=== PATIENT | female | born 1970 | race Caucasian/White ===

== ENCOUNTER 2016-11-03 07:57 | Outpatient (CLI) | payer BC ==
[~2016-11-03] VITALS: Ht 175.3 cm; Wt 74.8 kg
[~2016-11-03 07:57] MED LIST: ACHD5005 PO; ACHYD1T PO; CRS350T; DCS100C PO; DIAZ5TAB3 PO; ESTR1TAB24 PO; FERR-57 PO; HYDR-34; HYDR1CAP2 PO; HYDR1TAB PO; IBP800T PO; NAPR-243 PO; NAPR220T76 PO; NITR-65 PO; ONDAN4ODT PO; OXYC-272 PO; PREN1TAB39 PO; PROM25SU10 PR
--- OUTSIDE RECORDS SUMMARY | 2016-11-03 08:00 | XMS REPORT | Continuity of Care Document ---
Author Author [facility] Organization [facility] Address Unknown Phone Unavailable Care Team Providers Care Barrel Marker Name Role Phone MORENITA COHN MD PCP Insurance Providers Payer Name Policy Number [id number] Self / Same As Patient Advance Directives Directive Response Recorded Date/Time Advance Directives No 01/29/15 8:08am Health Care Power of [employer] Bpm Consultant No 01/29/15 8:08am Organ Donor Yes 01/29/15 8:08am Resuscitation Status Full Code 01/29/15 8:08am Problems No known problems or medical conditions. Medications Medication Dose Route Sig Days/Qty Instructions Order Date Discontinued Date Status Carisoprodol 10/11/09 04/08/10 Discontinued Acetaminophen/Hydrocodone Bitart 10/11/09 04/08/10 Discontinued Acetaminophen/Hydrocodone Bitart (Lorcet-Hd) 2 Each PO Q6HR PRN 20 Qty 04/08/10 07/22/11 Discontinued Ibuprofen 800 Mg PO GIVE EVERY 8 HRS ON SCHEDULE PRN 30 Qty 04/08/10 07/22/11 Discontinued Naproxen Sodium 220 Mg PO NEEDED 07/10/10 06/17/13 Discontinued Acetaminophen/Hydrocodone Bitart (Lorcet-Hd) 1 - 2 Each PO Q6HR PRN 20 Qty 07/10/10 06/17/13 Discontinued Diazepam (Valium) 1 Each PO TWICE A DAY PRN 14 Qty 07/10/10 06/17/13 Discontinued Naproxen 1 Each PO TWICE A DAY PRN 20 Qty 07/10/10 06/17/13 Discontinued Acetaminophen/Hydrocodone Bitart 1 - 2 Tab PO q 3hr PRN 07/22/1106/21 Discontinued Ibuprofen 800 Mg PO EVERY 6 HOURS PRN 07/22/11 10/26/11 Discontinued Ferrous Sulfate 325 Mg PO DAILY 07/22/11 10/26/11 Discontinued Docusate Sodium 100 Mg PO TWICE A DAY 07/22/11 10/26/11 Discontinued Vits W-Ca,Fe,Fa(<1MG) 1 Each PO DAILY 07/22/11 10/26/11 Discontinued Ondansetron HCl 4 - 8 P PO EVERY 4HRS 10 Qty FOR NAUSEA AND VOMITING 31/0812/19/11 Discontinued Promethazine HCl 1 - 2 Supp [place] FOUR TIMES DAILY PRN 10 Qty 11/30/11 Discontinued Nitrofurantoin Macrocrystals 1 Each PO TWICE A DAY 20 Qty FOR INFECTION 11/30/11 12/19/11 Discontinued Acetaminophen/Hydrocodone Bitart 2 Each PO Q4HR PRN 12/22/11 Discontinued Oxycodone Hcl/Acetaminophen 1 Tab PO EVERY 4HRS PRN 12/23/11 Active Ibuprofen 800 Mg PO GIVE EVERY 6 HR ON SCHEDULE 30 Qty 12/23/11 Discontinued Docusate Sodium 100 Mg PO DAILY 60 Qty 12/23/11 06/17/13 Discontinued Estradiol 1 Mg PO DAILY 90 Qty 12/23/11 06/17/13 Discontinued Ibuprofen 800 Mg PO BEDTIME 06/17/13 Active Acetaminophen/Hydrocodone Bitart 1 Tab PO EVERY 6 HOURS PRN PRN PAIN Active Social History Social History Problem Response Recorded Date/Time Recent Foreign Travel No 01/29/2015 8:07am Hospital Discharge Instructions No hospital discharge instructions. Plan of Care No plan of care. Functional Status No functional status results. Allergies, Adverse Reactions, Alerts Allergen Type Severity Reaction Status Last Updated NKANo Known Allergies Allergy Unknown Active 10/02/06 Immunizations Name Given Type Date of Influenza Vaccine 07/10/11 Historical Vital Signs Acute Vital Signs Vital Response Date/Time Temperature (Fahrenheit) 96.4 degrees F (97.6 - 99.5) Temperature (Calculated Celsius) 35.45662 degrees C (36.4 - 37.5) Temperature Source Tympanic Pulse Rate (adult) 72 bpm (60 - 90) Respiratory Rate 14 bpm (12 - 24) O2 Sat by Pulse Oximetry 99 % (88 - 100) Blood Pressure 103/82 mm Hg Pain Pain Intensity 0 Height (Feet) 5 feet Height (Inches) 9.00 inches Height (Calculated Centimeters) 175.473882 cm Weight (Pounds) 145 pounds Weight (Calculated Grams) 90624.894 gm Weight (Calculated Kilograms) 65.803887 kilograms Calculated BMI 21.41 Results No known relevant diagnostic tests, laboratory data and/or discharge summary. Procedures No known history of procedures. Encounters Encounter Location Date/Time Registered Clinic [facility] 01/29/15 7:52am Registered Clinic [facility] 01/05/15 4:02pm
[2016-11-03 08:11] VITALS: BP 119/90
[2016-11-03] MEDS ORDERED: DEXAMETHASONE PF 10 MG/ML (DECADRON) VIAL ONE (08:21)
[2016-11-03 08:41] VITALS: BP 115/94
--- NOTE | 2016-11-03 11:23 | Pain Medicine-Procedure ---
Procedure Pre-Op/Post-Op Diagnosis Diagnosis: disc disorder with radiculopathy, cervical Indications for Operation neck pain Attending Surgeon Blake Procedure Date of Service: Nov 03, 2016 Procedure: Cervical Epidural Steroid Injection at the C7-T1 Level under Fluoroscopic Guidance Procedure: Pt was identified in the holding area. After risks, benefits, and alternatives were discussed with the patient, informed consent was obtained. An IV was placed by nursing staff prior to procedure. Patient was brought to the fluoroscopy suite and placed prone on the operating table. A time out was performed. Vital signs were monitored throughout the procedure. The patients neck was prepped and draped in the usual sterile fashion. The patients skin was anesthetized using 1% Lidocaine. A 18 gauge tuohy needle was inserted and advanced to the C7-T1 epidural space under fluoroscopic guidance using the loss of resistance technique. The needle position was confirmed in the AP and lateral view. After negative aspiration 2 ml of non-ionic contrast was injected under live fluoroscopy which showed good spread of the contrast in the epidural space at the appropriate level, there was no intravascular or subarachnoid spread. Again, after negative aspiration, 3 ml of preservative free normal saline and 10 mg of dexamethasone was injected. The needle was removed and the patient was transferred to the recovery area in stable condition. And after a brief period of observation was discharged to home in stable condition with no new neurologic deficits. Complications none MATHEUS GRECO MD Nov 03, 2016 11:22 am
== END 2016-11-03 08:43 | disposition home or self-care (01) ==
LOC: CARD 07:57
PROVIDERS: ATTEND Pain Medicine Pain Medicine
DX: M50.13 Cervical disc disorder with radiculopathy, cervicothoracic region (principal); M41.83 Other forms of scoliosis, cervicothoracic region; M51.14 Intervertebral disc disorders with radiculopathy, thoracic region; Z79.899 Other long term (current) drug therapy
CPT/HCPCS: 62321

== ENCOUNTER → 2017-02-27 | Outpatient (CLI) | payer BC ==
--- NOTE | 2017-02-27 19:23 | Diagnostic Imaging Report ---
INDICATION: Lower back pain radiating to the left hip COMPARISON STUDIES: None FINDINGS: Two views of the left hip demonstrate no fracture or dislocation. There is normal ossification. IMPRESSION: Negative left hip. Dictated by: Dictated on workstation # [id number]
--- NOTE | 2017-02-27 19:25 | Diagnostic Imaging Report ---
INDICATION: Lower back pain radiating to the left hip. FINDINGS: Frontal and lateral views of the lumbar spine demonstrate no fracture or subluxation. Mild left rotary scoliosis is present. Facet arthropathy is present at L5-S1, greater on the right than the left. IMPRESSION: 1. Rotary scoliosis is present. 2. Facet arthropathy is present at L5-S1. Dictated by: Dictated on workstation # [id number]
== END ==
LOC: RAD 17:44
DX: M41.26 Other idiopathic scoliosis, lumbar region (principal); M12.9 Arthropathy, unspecified; M25.552 Pain in left hip
CPT/HCPCS: 72100; 73502

== ENCOUNTER → 2017-07-06 | Outpatient (CLI) | payer BC ==
--- NOTE | 2017-07-10 14:01 | Diagnostic Imaging Report ---
EXAMINATION: Bilateral screening mammogram 2D views with tomosynthesis. The current study was also evaluated with a Computer Aided Detection (CAD) system. INDICATION: Screening. PERSONAL HISTORY: No current complaints stated on the questionnaire. COMPARISON: 02/23/2016. FINDINGS: The breasts are composed of heterogeneously dense parenchyma which may decrease mammographic sensitivity. There is no mass, architectural distortion, or suspicious cluster of calcifications. Allowing for technique and positional differences, no suspicious change is seen. IMPRESSION: Dense breasts with no definite change. ACR BI-RADS Category 2: Benign findings. Result letter will be mailed to the patient. Note: At least 10% of breast cancer is not imaged by mammography. Dictated by: Dictated on workstation # [id number]
== END ==
LOC: RAD 13:39
PROVIDERS: ATTEND Nurse Practitioner Family
DX: Z12.31 Encounter for screening mammogram for malignant neoplasm of breast (principal)
CPT/HCPCS: 77067

== ENCOUNTER 2017-09-24 08:53 | Emergency (ER) | payer OTHER, BC ==
[~2017-09-24] VITALS: Ht 175.3 cm; Wt 74.8 kg
--- OUTSIDE RECORDS SUMMARY | 2017-09-24 08:58 | XMS REPORT ---
Author Author MARCUS MATHEW [facility] Address [address] [place] [address] Care Team Providers Care Vaccine Specialist Name Role Phone MARCUS MATHEW Unavailable PROBLEMS Type Condition ICD9-CM Code [id number] Code Onset Dates Condition Status SNOMED Code Assessment Encounter for immunization Z23 15 Apr, 2016 Active [id number] ALLERGIES Unknown Allergies SOCIAL HISTORY No smoking Hx information available PLAN OF CARE VITAL SIGNS MEDICATIONS Unknown Medications RESULTS No Results PROCEDURES Procedure Date Ordered Related Diagnosis Body Site TDAP (BOOSTRIX) Apr 24, 2016 SINGLE IMMUNIZATION ADMIN Apr 24, 2016 IMMUNIZATIONS Vaccine Route Administration Date Status TDAP (BOOSTRIX) IM Intramuscular Apr 24, 2016 Administered
--- OUTSIDE RECORDS SUMMARY | 2017-09-24 08:59 | XMS REPORT | Continuity of Care Document ---
Author Author Via [facility] Organization [facility] Address Unknown Phone Unavailable Allergies Active Description Code Type Severity Reaction Onset Reported/Identified Relationship to Patient Clinical Status Yes NKANo Known Allergies NKA Miscellaneous Allergy Unknown N/A 10/02/2006 Medications There is no data. Problems Date Dx Coded Attending Type Code Diagnosis Diagnosed By 07/10/2010 Ot 723.4 07/10/2010 Ot 847.0 07/10/2010 Ot 959.09 07/10/2010 Ot E000.8 07/10/2010 Ot E849.0 07/10/2010 Ot E927.8 06/27/2011 Ot 644.03 THRT ARACELIS LABOR-ANTEPART 07/22/2011 Ot 644.21 EARLY ONSET DELIVERY-DEL 07/22/2011 Ot 654.21 PREV DELIVRY W/ OR W/O MENT ANT 07/22/2011 Ot 659.61 ELD MULTIGRAVIDA DEL W MENTION OF ANTEPA 07/22/2011 Ot V06.1 DIPHTHERIA- TETANUS-PERTUSSIS, COMBINED [ 07/22/2011 Ot V27.0 DELIVER- SINGLE LIVEBORN 10/27/2011 Ot 614.6 FEM PELVIC PERITON ADH-POST-OP/INF 10/27/2011 Ot 617.1 OVARIAN ENDOMETRIOSIS 10/27/2011 Ot 617.3 PELV PERIT ENDOMETRIOSIS 10/27/2011 Ot 626.8 MENSTRUAL DISORDER NEC 11/30/2011 Ot 558.9 NONINF GASTROENTERIT NEC 11/30/2011 Ot 599.0 URIN TRACT INFECTION NOS 11/30/2011 Ot 787.03 VOMITING ALONE 12/23/2011 Ot 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 12/23/2011 Ot 614.6 FEM PELVIC PERITON ADH-POST-OP/INF 12/23/2011 Ot 617.0 UTERINE ENDOMETRIOSIS 12/23/2011 Ot 617.3 PELV PERIT ENDOMETRIOSIS 12/23/2011 Ot 620.0 FOLLICULAR CYST OF OVARY 12/23/2011 Ot 626.8 MENSTRUAL DISORDER NEC 10/08/2014 MATHEUS GRECO MD Ot 723.1 10/08/2014 MATHEUS GRECO MD Ot 786.50 11/05/2014 MATHEUS GRECO MD Ot 723.1 11/05/2014 MATHEUS GRECO MD Ot 737.30 01/29/2015 MATHEUS GRECO MD Ot 722.4 CERVICAL DISC DEGEN 01/29/2015 MATHEUS GRECO MD Ot 729.1 MYALGIA AND MYOSITIS NOS 01/29/2015 MATHEUS GRECO MD Ot 737.30 IDIOPATHIC SCOLIOSIS 01/29/2015 MATHEUS GRECO MD Ot V58.69 OTH MED,LT,CURRENT USE 02/02/2015 Ot 723.1 02/02/2015 Ot 959.09 02/02/2015 Ot E000.8 02/02/2015 Ot E849.0 02/02/2015 Ot E928.9 02/02/2015 Ot 723.0 02/02/2015 Ot 959.09 02/02/2015 Ot E000.8 02/02/2015 Ot E849.0 02/02/2015 Ot E888.9 02/02/2015 Ot 785.1 02/02/2015 Ot 285.9 02/02/2015 Ot 625.8 02/02/2015 Ot 626.2 02/02/2015 Ot V72.63 02/02/2015 Ot V74.8 02/02/2015 Ot 285.9 02/02/2015 Ot 617.9 02/02/2015 Ot 625.9 02/02/2015 Ot 626.8 02/02/2015 Ot V72.63 02/02/2015 Ot V74.8 02/02/2015 Ot 241.0 02/02/2015 Ot 796.2 02/02/2015 Ot V72.62 02/02/2015 GUSTABO CASTELLANO MD Ot 789.04 02/02/2015 CAROLINE MARQUEZ, STEPHANIE Ot 553.21 02/02/2015 CAROLINE MARQUEZ, STEPHANIE Ot V72.63 02/02/2015 CAROLINE MARQUEZ, STEPHANIE Ot V74.8 02/02/2015 CAROLINE MARQUEZ, STEPHANIE Ot 553.21 02/02/2015 GUSTABO CASTELLANO MD Ot 611.71 02/02/2015 SILVERIOSOFIA RECRUITMENT AND OUTREACH ASSISTANT Ot 724.5 02/02/2015 NUSRATSOFIA RECRUITMENT AND OUTREACH ASSISTANT Ot 789.00 02/02/2015 NUSRATSOFIA RECRUITMENT AND OUTREACH ASSISTANT Ot 793.6 02/02/2015 NUSRATSOFIA RECRUITMENT AND OUTREACH ASSISTANT Ot V76.12 02/02/2015 MATHEUS GRECO MD Ot 723.1 02/02/2015 MATHEUS GRECO MD Ot 786.50 02/02/2015 MATHEUS GRECO MD Ot 723.1 02/02/2015 MATHEUS GRECO MD Ot 737.30 02/02/2015 MATHEUS GRECO MD Ot 724.02 02/02/2015 MATHEUS GRECO MD Ot 737.30 02/06/2015 MATHEUS GRECO MD Ot 724.02 02/06/2015 MATHEUS GRECO MD Ot 737.30 02/17/2015 Ot 723.1 02/17/2015 Ot 959.09 02/17/2015 Ot E000.8 02/17/2015 Ot E849.0 02/17/2015 Ot E928.9 02/17/2015 Ot 723.0 02/17/2015 Ot 959.09 02/17/2015 Ot E000.8 02/17/2015 Ot E849.0 02/17/2015 Ot E888.9 02/17/2015 Ot 785.1 02/17/2015 Ot 285.9 02/17/2015 Ot 625.8 02/17/2015 Ot 626.2 02/17/2015 Ot V72.63 02/17/2015 Ot V74.8 02/17/2015 Ot 285.9 02/17/2015 Ot 617.9 02/17/2015 Ot 625.9 02/17/2015 Ot 626.8 02/17/2015 Ot V72.63 02/17/2015 Ot V74.8 02/17/2015 Ot 241.0 02/17/2015 Ot 796.2 02/17/2015 Ot V72.62 02/17/2015 GUSTABO CASTELLANO MD Ot 789.04 02/17/2015 STEPHANIE VELAZQUEZ MD Ot 553.21 02/17/2015 STEPHANIE VELAZQUEZ MD Ot V72.63 02/17/2015 STEPHANIE VELAZQUEZ MD Ot V74.8 02/17/2015 CAROLINE MARQUEZ, STEPHANIE Ot 553.21 02/17/2015 GRAY MARQUEZ, GUSTABO Diaz Ot 611.71 02/17/2015 NUSRAT SOFIA M RECRUITMENT AND OUTREACH ASSISTANT Ot 724.5 02/17/2015 NUSRATSOFIA RECRUITMENT AND OUTREACH ASSISTANT Ot 789.00 02/17/2015 NUSRAT SOFIA M RECRUITMENT AND OUTREACH ASSISTANT Ot 793.6 02/17/2015 SOFIA SILVERIO RECRUITMENT AND OUTREACH ASSISTANT Ot V76.12 02/17/2015 MATHEUS GRECO MD Ot 723.1 02/17/2015 MATHEUS GRECO MD Ot 786.50 02/17/2015 MATHEUS GRECO MD Ot 723.1 02/17/2015 MATHEUS GRECO MD Ot 737.30 02/17/2015 MATHEUS GRECO MD Ot 724.02 02/17/2015 MATHEUS GRECO MD Ot 737.30 02/21/2015 Ot 723.1 02/21/2015 Ot 959.09 02/21/2015 Ot E000.8 02/21/2015 Ot E849.0 02/21/2015 Ot E928.9 02/21/2015 Ot 723.0 02/21/2015 Ot 959.09 02/21/2015 Ot E000.8 02/21/2015 Ot E849.0 02/21/2015 Ot E888.9 02/21/2015 Ot 785.1 02/21/2015 Ot 285.9 02/21/2015 Ot 625.8 02/21/2015 Ot 626.2 02/21/2015 Ot V72.63 02/21/2015 Ot V74.8 02/21/2015 Ot 285.9 02/21/2015 Ot 617.9 02/21/2015 Ot 625.9 02/21/2015 Ot 626.8 02/21/2015 Ot V72.63 02/21/2015 Ot V74.8 02/21/2015 Ot 241.0 02/21/2015 Ot 796.2 02/21/2015 Ot V72.62 02/21/2015 GRAY MARQUEZ, GUSTABO Diaz Ot 789.04 02/21/2015 CAROLINE MARQUEZ, STEPHANIE Ot 553.21 02/21/2015 STEPHANIE VELAZQUEZ MD Ot V72.63 02/21/2015 CAROLINE MARQUEZ, STEHPANIE Ot V74.8 02/21/2015 CAROLINE MARQUEZ, STEPHANIE Ot 553.21 02/21/2015 GRAY MARQUEZ, GUSTABO Diaz Ot 611.71 02/21/2015 NUSRAT SOFIA M RECRUITMENT AND OUTREACH ASSISTANT Ot 724.5 02/21/2015 ELANA SILVERIOHANCHIP Rivera RECRUITMENT AND OUTREACH ASSISTANT Ot 789.00 02/21/2015 SOFIA SILVERIO RECRUITMENT AND OUTREACH ASSISTANT Ot 793.6 02/21/2015 SOFIA SILVERIO RECRUITMENT AND OUTREACH ASSISTANT Ot V76.12 02/21/2015 MATHEUS GRECO MD Ot 723.1 02/21/2015 FANNIE MARQUEZ, MATHEUS Cho Ot 786.50 02/21/2015 MATHEUS GRECO MD Ot 723.1 02/21/2015 MATHEUS GRECO MD Ot 737.30 02/21/2015 MATHEUS GRECO MD Ot 724.02 02/21/2015 MATHEUS GRECO MD Ot 737.30 02/24/2015 Ot 723.1 02/24/2015 Ot 959.09 02/24/2015 Ot E000.8 02/24/2015 Ot E849.0 02/24/2015 Ot E928.9 02/24/2015 Ot 723.0 02/24/2015 Ot 959.09 02/24/2015 Ot E000.8 02/24/2015 Ot E849.0 02/24/2015 Ot E888.9 02/24/2015 Ot 785.1 02/24/2015 Ot 285.9 02/24/2015 Ot 625.8 02/24/2015 Ot 626.2 02/24/2015 Ot V72.63 02/24/2015 Ot V74.8 02/24/2015 Ot 285.9 02/24/2015 Ot 617.9 02/24/2015 Ot 625.9 02/24/2015 Ot 626.8 02/24/2015 Ot V72.63 02/24/2015 Ot V74.8 02/24/2015 Ot 241.0 02/24/2015 Ot 796.2 02/24/2015 Ot V72.62 02/24/2015 GUSTABO CASTELLANO MD Ot 789.04 02/24/2015 CAROLINE MARQUEZ, STEPHANIE Ot 553.21 02/24/2015 STEPHANIE VELAZQUEZ MD Ot V72.63 02/24/2015 CAROLINE MARQUEZ, STEPHANIE Ot V74.8 02/24/2015 STEPHANIE VELAZQUEZ MD Ot 553.21 02/24/2015 GRAY MARQUEZ, GUSTABO Diaz Ot 611.71 02/24/2015 SOFIA SILVERIO RECRUITMENT AND OUTREACH ASSISTANT Ot 724.5 02/24/2015 SOFIA SILVERIO RECRUITMENT AND OUTREACH ASSISTANT Ot 789.00 02/24/2015 SOFIA SILVERIO RECRUITMENT AND OUTREACH ASSISTANT Ot 793.6 02/24/2015 SOFIA SILVERIO RECRUITMENT AND OUTREACH ASSISTANT Ot V76.12 02/24/2015 MATHEUS GRECO MD Ot 723.1 02/24/2015 MATHEUS GRECO MD Ot 786.50 02/24/2015 MATHEUS GRECO MD Ot 723.1 02/24/2015 MATHEUS GRECO MD Ot 737.30 02/24/2015 MATHEUS GRECO MD Ot 724.02 02/24/2015 MATHEUS GRECO MD Ot 737.30 03/26/2015 MATHEUS GRECO MD Ot 722.4 CERVICAL DISC DEGEN 03/26/2015 MATHEUS GRECO MD Ot 729.1 MYALGIA AND MYOSITIS NOS 03/26/2015 MATHEUS GRECO MD Ot 737.30 IDIOPATHIC SCOLIOSIS 03/26/2015 MATHEUS GRECO MD Ot V58.69 OT MED,LT,CURRENT USE 07/23/2015 MATHEUS GRECO MD Ot M41.9 SCOLIOSIS, UNSPECIFIED 07/23/2015 MATHEUS GRECO MD Ot M50.13 CERVICAL DISC DISORDER W RADICULOPATHY, 07/23/2015 MATHEUS GRECO MD Ot M79.1 MYALGIA 07/23/2015 MATHEUS GRECO MD Ot Z79.899 OTHER SUPERVISOR [employer] (CURRENT) DRUG THERAPY 12/17/2015 Ot 723.1 12/17/2015 Ot 959.09 12/17/2015 Ot E000.8 12/17/2015 Ot E849.0 12/17/2015 Ot E928.9 12/17/2015 Ot 723.0 12/17/2015 Ot 959.09 12/17/2015 Ot E000.8 12/17/2015 Ot E849.0 12/17/2015 Ot E888.9 12/17/2015 Ot 785.1 12/17/2015 Ot 285.9 12/17/2015 Ot 625.8 12/17/2015 Ot 626.2 12/17/2015 Ot V72.63 12/17/2015 Ot V74.8 12/17/2015 Ot 285.9 12/17/2015 Ot 617.9 12/17/2015 Ot 625.9 12/17/2015 Ot 626.8 12/17/2015 Ot V72.63 12/17/2015 Ot V74.8 12/17/2015 Ot 241.0 12/17/2015 Ot 796.2 12/17/2015 Ot V72.62 12/17/2015 GRAY MARQUEZ, GUSTABO Diaz Ot 789.04 12/17/2015 CAROLINE MARQUEZ, STEPHANIE Ot 553.21 12/17/2015 CAROLINE MARQEUZ, STEPHANIE Ot V72.63 12/17/2015 CAROLINE MARQUEZ, STEPHANIE Ot V74.8 12/17/2015 CAROLINE MARQUEZ, STEPHANIE Ot 553.21 12/17/2015 GRAY MARQUEZ, GUSTABO Diaz Ot 611.71 12/17/2015 SOFIA SILVERIO RECRUITMENT AND OUTREACH ASSISTANT Ot 724.5 12/17/2015 SOFIA SILVERIO RECRUITMENT AND OUTREACH ASSISTANT Ot 789.00 12/17/2015 SOFIA SILVERIO RECRUITMENT AND OUTREACH ASSISTANT Ot 793.6 12/17/2015 SOFIA SILVERIO RECRUITMENT AND OUTREACH ASSISTANT Ot V76.12 12/17/2015 MATHEUS GRECO MD Ot 723.1 12/17/2015 MATHEUS GRECO MD Ot 786.50 12/17/2015 MATHEUS GRECO MD Ot 723.1 12/17/2015 MATHEUS GRECO MD Ot 737.30 12/17/2015 MATHEUS GRECO MD Ot 724.02 12/17/2015 MATHEUS GRECO MD Ot 737.30 12/17/2015 MATHEUS GRECO MD Ot M50.13 CERVICAL DISC DISORDER W RADICULOPATHY, 12/17/2015 MATHEUS GRECO MD, Ot 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, T 12/17/2015 MATHEUS GRECO MD Ot Z79.899 OTHER SUPERVISOR [employer] (CURRENT) DRUG THERAPY 12/24/2015 MATHEUS GRECO MD Ot M50.13 CERVICAL DISC DISORDER W RADICULOPATHY, 12/24/2015 MATHEUS GRECO MD Ot 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, T 12/24/2015 MATHEUS GRECO MD Ot Z79.899 OTHER ALF (CURRENT) DRUG THERAPY 12/24/2015 MATHEUS GRECO MD Ot M50.13 CERVICAL DISC DISORDER W RADICULOPATHY, 12/24/2015 MATHEUS GRECO MD Ot 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, T 12/24/2015 MATHEUS GRECO MD Ot Z79.899 OTHER SUPERVISOR [employer] (CURRENT) DRUG THERAPY 03/16/2016 SUKI MARQUEZ, MORENITA Roach Ot R22.32 LOCALIZED SWELLING, MASS AND LUMP, LEFT 05/05/2016 Ot 785.1 PALPITATIONS 05/05/2016 Ot 285.9 ANEMIA NOS 05/05/2016 Ot 625.8 FEM GENITAL SYMPTOMS NEC 05/05/2016 Ot 626.2 EXCESSIVE MENSTRUATION 05/05/2016 Ot V72.63 PRE- PROCEDURAL LABORATORY EXAMINATION 05/05/2016 Ot V74.8 SCREEN- BACTERIAL DIS NEC 05/05/2016 Ot 285.9 ANEMIA NOS 05/05/2016 Ot 617.9 ENDOMETRIOSIS NOS 05/05/2016 Ot 625.9 FEM GENITAL SYMPTOMS NOS 05/05/2016 Ot 626.8 MENSTRUAL DISORDER NEC 05/05/2016 Ot V72.63 PRE- PROCEDURAL LABORATORY EXAMINATION 05/05/2016 Ot V74.8 SCREEN- BACTERIAL DIS NEC 05/05/2016 Ot 241.0 NONTOX UNINODULAR GOITER 05/05/2016 Ot 796.2 ELEV BL PRES W/O HYPERTN 05/05/2016 Ot V72.62 LAB EXAM ORDERED PART OF A ROUTINE GE 05/05/2016 GRAY MARQUEZ, GUSTABO Diaz Ot 789.04 ABDOMINAL PAIN, LEFT LOWER QUADRANT 05/05/2016 CAROLINE MARQUEZ, STEPHANIE Ot 553.21 INCISIONAL HERNIA 05/05/2016 CAROLINE MARQUEZ, STEPHANIE Ot V72.63 PRE-PROCEDURAL LABORATORY EXAMINATION 05/05/2016 CAROLINE MARQUEZ, STEPHANIE Ot V74.8 SCREEN-BACTERIAL DIS NEC 05/05/2016 CAROLINE MARQUEZ, STEPHANIE Ot 553.21 INCISIONAL HERNIA 05/05/2016 GRAY MARQUEZ, GUSTABO Diaz Ot 611.71 MASTODYNIA 05/05/2016 SOFIA SILVERIO RECRUITMENT AND OUTREACH ASSISTANT Ot 724.5 BACKACHE NOS 05/05/2016 SOFIA SILVERIO RECRUITMENT AND OUTREACH ASSISTANT Ot 789.00 ABDOMINAL PAIN, UNSPECIFIED SITE 05/05/2016 SOFIA SILVERIO RECRUITMENT AND OUTREACH ASSISTANT Ot 793.6 NOSP (ABN) FINDINGS ON RADIOLOGICAL OT 05/05/2016 SOFIA SILVERIO RECRUITMENT AND OUTREACH ASSISTANT Ot V76.12 OTH SCREEN MAMMO-MALIGN NEOPLASM OF ARGENIS 05/05/2016 MATHEUS GRECO MD Ot 723.1 CERVICALGIA 05/05/2016 MATHEUS GRECO MD Ot 786.50 CHEST PAIN NOS 05/05/2016 MATHEUS GRECO MD Ot 723.1 CERVICALGIA 05/05/2016 MATHEUS GRECO MD Ot 737.30 IDIOPATHIC SCOLIOSIS 05/05/2016 MATHEUS GRECO MD Ot 724.02 SPINAL STENOSIS, LUMBAR REG, W/OUT NEURO 05/05/2016 MATHEUS GRECO MD Ot 737.30 IDIOPATHIC SCOLIOSIS 05/05/2016 SUKI MARQUEZ, MORENITA Roach Ot R22.32 LOCALIZED SWELLING, MASS AND LUMP, LEFT 05/05/2016 MATHEUS GRECO MD Ot M41.83 OTHER FORMS OF SCOLIOSIS, CERVICOTHORACI 05/05/2016 MATHEUS GRECO MD Ot M50.13 CERVICAL DISC DISORDER W RADICULOPATHY, 05/05/2016 MATHEUS GRECO MD Ot 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, T 05/05/2016 MATHEUS GRECO MD Ot Z79.899 OTHER ALF (CURRENT) DRUG THERAPY 05/19/2016 MATHEUS GRECO MD Ot M41.83 OTHER FORMS OF SCOLIOSIS, CERVICOTHORACI 05/19/2016 MATHEUS GRECO MD Ot M50.13 CERVICAL DISC DISORDER W RADICULOPATHY, 05/19/2016 MATHEUS GRECO MD, Ot 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, T 05/19/2016 MATHEUS GRECO MD Ot Z79.899 OTHER ALF (CURRENT) DRUG THERAPY 10/01/2016 Ot 785.1 PALPITATIONS 10/01/2016 Ot 285.9 ANEMIA NOS 10/01/2016 Ot 625.8 FEM GENITAL SYMPTOMS NEC 10/01/2016 Ot 626.2 EXCESSIVE MENSTRUATION 10/01/2016 Ot V72.63 PRE- PROCEDURAL LABORATORY EXAMINATION 10/01/2016 Ot V74.8 SCREEN- BACTERIAL DIS NEC 10/01/2016 Ot 285.9 ANEMIA NOS 10/01/2016 Ot 617.9 ENDOMETRIOSIS NOS 10/01/2016 Ot 625.9 FEM GENITAL SYMPTOMS NOS 10/01/2016 Ot 626.8 MENSTRUAL DISORDER NEC 10/01/2016 Ot V72.63 PRE- PROCEDURAL LABORATORY EXAMINATION 10/01/2016 Ot V74.8 SCREEN- BACTERIAL DIS NEC 10/01/2016 Ot 241.0 NONTOX UNINODULAR GOITER 10/01/2016 Ot 796.2 ELEV BL PRES W/O HYPERTN 10/01/2016 Ot V72.62 LAB EXAM ORDERED PART OF A ROUTINE GE 10/01/2016 GRAY MARQUEZ, GUSTABO Diaz Ot 789.04 ABDOMINAL PAIN, LEFT LOWER QUADRANT 10/01/2016 CAROLINE MARQUEZ, STEPHANIE Ot 553.21 INCISIONAL HERNIA 10/01/2016 STEPHANIE VELAZQUEZ MD Ot V72.63 PRE-PROCEDURAL LABORATORY EXAMINATION 10/01/2016 STEPHANIE VELAZQUEZ MD Ot V74.8 SCREEN-BACTERIAL DIS NEC 10/01/2016 CAROLINE MARQUEZ, STEPHANIE Ot 553.21 INCISIONAL HERNIA 10/01/2016 GRAY MARQUEZ, GUSTABO Diaz Ot 611.71 MASTODYNIA 10/01/2016 SOFIA SILVERIO RECRUITMENT AND OUTREACH ASSISTANT Ot 724.5 BACKACHE NOS 10/01/2016 SOFIA SILVERIO RECRUITMENT AND OUTREACH ASSISTANT Ot 789.00 ABDOMINAL PAIN, UNSPECIFIED SITE 10/01/2016 SOFIA SILVERIO RECRUITMENT AND OUTREACH ASSISTANT Ot 793.6 NOSP (ABN) FINDINGS ON RADIOLOGICAL OT 10/01/2016 SOFIA SILVERIOP Ot V76.12 OT SCREEN MAMMO-MALIGN NEOPLASM OF ARGENIS 10/01/2016 MATHEUS GRECO MD Ot 723.1 CERVICALGIA 10/01/2016 MATHEUS GRECO MD Ot 786.50 CHEST PAIN NOS 10/01/2016 MATHEUS GRECO MD Ot 723.1 CERVICALGIA 10/01/2016 MATHEUS GRECO MD Ot 737.30 IDIOPATHIC SCOLIOSIS 10/01/2016 MATHEUS GRECO MD Ot 724.02 SPINAL STENOSIS, LUMBAR REG, W/OUT NEURO 10/01/2016 MATHEUS GRECO MD Ot 737.30 IDIOPATHIC SCOLIOSIS 10/01/2016 SUKI MARQUEZ, MORENITA Roach Ot R22.32 LOCALIZED SWELLING, MASS AND LUMP, LEFT 10/27/2016 Ot 785.1 PALPITATIONS 10/27/2016 Ot 285.9 ANEMIA NOS 10/27/2016 Ot 625.8 FEM GENITAL SYMPTOMS NEC 10/27/2016 Ot 626.2 EXCESSIVE MENSTRUATION 10/27/2016 Ot V72.63 PRE- PROCEDURAL LABORATORY EXAMINATION 10/27/2016 Ot V74.8 SCREEN- BACTERIAL DIS NEC 10/27/2016 Ot 285.9 ANEMIA NOS 10/27/2016 Ot 617.9 ENDOMETRIOSIS NOS 10/27/2016 Ot 625.9 FEM GENITAL SYMPTOMS NOS 10/27/2016 Ot 626.8 MENSTRUAL DISORDER NEC 10/27/2016 Ot V72.63 PRE- PROCEDURAL LABORATORY EXAMINATION 10/27/2016 Ot V74.8 SCREEN- BACTERIAL DIS NEC 10/27/2016 Ot 241.0 NONTOX UNINODULAR GOITER 10/27/2016 Ot 796.2 ELEV BL PRES W/O HYPERTN 10/27/2016 Ot V72.62 LAB EXAM ORDERED PART OF A ROUTINE GE 10/27/2016 GRAY MARQUEZ, GUSTABO Diaz Ot 789.04 ABDOMINAL PAIN, LEFT LOWER QUADRANT 10/27/2016 CAROLINE MARQUEZ, STEPHANIE Ot 553.21 INCISIONAL HERNIA 10/27/2016 CAROLINE MARQUEZ, STEPHANIE Ot V72.63 PRE-PROCEDURAL LABORATORY EXAMINATION 10/27/2016 CAROLINE MARQUEZ, STEPHANIE Ot V74.8 SCREEN-BACTERIAL DIS NEC 10/27/2016 CAROLINE MARQUEZ, STEPHANIE Ot 553.21 INCISIONAL HERNIA 10/27/2016 GRAY MARQUEZ, GUSTABO Diaz Ot 611.71 MASTODYNIA 10/27/2016 SOFIA SILVERIO RECRUITMENT AND OUTREACH ASSISTANT Ot 724.5 BACKACHE NOS 10/27/2016 SOFIA SILVERIO RECRUITMENT AND OUTREACH ASSISTANT Ot 789.00 ABDOMINAL PAIN, UNSPECIFIED SITE 10/27/2016 SOFIA SILVERIO RECRUITMENT AND OUTREACH ASSISTANT Ot 793.6 NOSP (ABN) FINDINGS ON RADIOLOGICAL OT 10/27/2016 SOFIA SILVERIO Ot V76.12 OTH SCREEN MAMMO-MALIGN NEOPLASM OF ARGENIS 10/27/2016 MATHEUS GRECO MD Ot 723.1 CERVICALGIA 10/27/2016 MATHEUS GRECO MD Ot 786.50 CHEST PAIN NOS 10/27/2016 MATHEUS GRECO MD Ot 723.1 CERVICALGIA 10/27/2016 MATHEUS GRECO MD Ot 737.30 IDIOPATHIC SCOLIOSIS 10/27/2016 MATHEUS GRECO MD Ot 724.02 SPINAL STENOSIS, LUMBAR REG, W/OUT NEURO 10/27/2016 MATHEUS GRECO MD Ot 737.30 IDIOPATHIC SCOLIOSIS 10/27/2016 MORENITA COHN MD Ot R22.32 LOCALIZED SWELLING, MASS AND LUMP, LEFT 11/03/2016 MATHEUS GRECO MD, Ot M41.83 OTHER FORMS OF SCOLIOSIS, CERVICOTHORACI 11/03/2016 MATHEUS GRECO MD, Ot M50.13 CERVICAL DISC DISORDER W RADICULOPATHY, 11/03/2016 MATHEUS GRECO MD, Ot 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, T 11/03/2016 MATHEUS GRECO MD Ot Z79.899 OTHER ALF (CURRENT) DRUG THERAPY 11/21/2016 MATHEUS GRECO MD, Ot M41.83 OTHER FORMS OF SCOLIOSIS, CERVICOTHORACI 11/21/2016 MATHEUS GRECO MD, Ot M50.13 CERVICAL DISC DISORDER W RADICULOPATHY, 11/21/2016 MATHEUS GRECO MD, Ot 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 Encounters ACCT No. Visit Date/Time Discharge Status Pt. Type Provider Facility Loc./Unit Complaint [id number] 07/06/2017 13:39:00 07/06/2017 23:59:59 CLS Outpatient VIRY CAMP APRN Via [facility] RAD SCREENING [id number] 02/27/2017 17:44:00 02/27/2017 23:59:59 CLS Outpatient NASIR VELASQUEZ MD [facility] RAD LOW BACK PAIN/LT HIP PAIN [id number] 11/03/2016 07:57:00 11/03/2016 08:43:00 DIS Outpatient MATHEUS GRECO MD Via [facility] CARD DISC DISORDER [id number] 05/05/2016 10:36:00 05/05/2016 11:42:00 DIS Outpatient MATHEUS GRECO MD Via [facility] [address] CERVICAL DISC DISORDER [id number] 02/23/2016 14:12:00 02/23/2016 23:59:59 CLS Outpatient MORENITA COHN MD Via [facility] RAD SWELLING OF LEFT AXILLA [id number] 12/17/2015 07:21:00 12/17/2015 08:30:00 DIS Outpatient MATHEUS GRECO MD Via [facility] CARD DISC DISORDER W/ RADICULOPATHY [id number] 07/23/2015 09:27:00 07/23/2015 11:20:00 DIS Outpatient MATHEUS GRECO MD Via [facility] CARD DDJD [id number] 03/26/2015 07:28:00 03/26/2015 08:49:00 DIS Outpatient MATHEUS GRECO MD Via [facility] CARD DDD [id number] 01/29/2015 07:52:00 01/29/2015 09:16:00 DIS Outpatient MATHEUS GRECO MD [facility] [address] DEGENERATIVE DISC DISEASE CERVICAL [id number] 01/05/2015 16:02:00 01/05/2015 23:59:59 CLS Outpatient MATHEUS GRECO MD Via [facility] RAD LUMBAGO [id number] 10/21/2014 14:57:00 10/21/2014 23:59:59 CLS Outpatient MATHEUS GRECO MD Via [facility] RAD CERVICAL PAIN, SCHOLIOSIS [id number] 09/17/2014 16:54:00 09/17/2014 23:59:59 CLS Outpatient FANNIE MARQUEZ, MATHEUS Cho [facility] RAD CERVICAL SPINE NECK PAIN, THORACALGIA, [id number] 06/25/2014 07:22:00 06/25/2014 23:59:59 CLS Outpatient SOFIA SILVERIO Via [facility] RAD SCREENING [id number] 01/01/2014 14:11:00 01/01/2014 23:59:59 CLS Outpatient SOFIA SILVERIO [facility] RAD LT FLANK PAIN [id number] 09/25/2013 14:01:00 09/25/2013 23:59:59 CLS Outpatient GUSTABO CASTELLANO MD [facility] RAD BREAST PAIN [id number] 06/19/2013 07:30:00 06/19/2013 23:59:59 CLS Outpatient STEPHANIE VELAZQUEZ MD [facility] SDC INCISIONAL LOWER LEFT ABDOMINAL WALL HERNIA [id number] 06/17/2013 07:56:00 06/17/2013 23:59:59 CLS Outpatient STEPHANIE VELAZQUEZ MD [facility] PREOP INCISIONAL LOWER LEFT ABDOMINAL WALL HERNIA [id number] 06/03/2013 07:42:00 06/03/2013 23:59:59 CLS Outpatient GUSTABO CASTELLANO MD [facility] RAD LLQ HERNIA [id number] 03/21/2013 09:31:00 03/21/2013 23:59:59 CLS Outpatient [id number] 03/07/2013 16:14:00 03/07/2013 23:59:59 CLS Outpatient [id number] 02/02/2015 12:10:00 Document Registration [id number] 02/20/2012 07:36:00 Document Registration [id number] 12/22/2011 05:37:00 Document Registration [id number] 12/19/2011 12:00:00 Document Registration [id number] 11/30/2011 15:36:00 Document Registration [id number] 10/27/2011 05:34:00 Document Registration [id number] 10/26/2011 12:07:00 Document Registration [id number] 07/20/2011 17:57:00 Document Registration [id number] 06/27/2011 09:25:00 Document Registration [id number] 06/09/2011 13:22:00 Document Registration [id number] 08/08/2010 12:22:00 Document Registration [id number] 07/20/2010 15:42:00 Document Registration [id number] 07/10/2010 10:17:00 Document Registration
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
[2017-09-24] MEDS ORDERED: KETOROLAC 30 MG/ML VIAL IVP ONE (09:15)
[2017-09-24 09:44] LABS: BASOPHILS % (AUTO) 1 % (0-10); EOSINOPHILS % (AUTO) 1 % (0-10); HEMATOCRIT 38 % (35-52); HEMOGLOBIN 12.8 G/DL (11.5-16.0); LYMPHOCYTES # (AUTO) 1.6 X 10^3 (1.0-4.0); LYMPHOCYTES % (AUTO) 35 % (12-44); MEAN CORPUSCULAR HEMOGLOBIN 33 PG (25-34); MEAN CORPUSCULAR HGB CONC 34 G/DL (32-36); MEAN CORPUSCULAR VOLUME 98 FL (80-99); MEAN PLATELET VOLUME 9.3 FL (7.4-10.4); MONOCYTES # (AUTO) 0.3 X 10^3 (0.0-1.0); MONOCYTES % (AUTO) 7 % (0-12); NEUTROPHILS # (AUTO) 2.5 X 10^3 (1.8-7.8); NEUTROPHILS % (AUTO) 57 % (42-75); PLATELET COUNT 318 10^3/uL (130-400); RED BLOOD COUNT 3.84 10^6/uL (4.35-5.85); RED CELL DISTRIBUTION WIDTH 11.8 % (10.0-14.5); WHITE BLOOD COUNT 4.5 10^3/uL (4.3-11.0)
[2017-09-24 10:07] LABS: ALANINE AMINOTRANSFERASE 22 U/L (0-55); ALBUMIN 4.4 GM/DL (3.2-4.5); ALKALINE PHOSPHATASE 53 U/L (40-136); BILIRUBIN,TOTAL 0.3 MG/DL (0.1-1.0); BUN/CREATININE RATIO 14; CALCIUM 9.4 MG/DL (8.5-10.1); CARBON DIOXIDE 24 MMOL/L (21-32); CHLORIDE 104 MMOL/L (98-107); CREATININE SERUM 0.71 MG/DL (0.60-1.30); GFR ESTIMATED > 60; GLUCOSE 85 MG/DL (70-105); POTASSIUM 3.8 MMOL/L (3.6-5.0); SODIUM 141 MMOL/L (135-145); TOTAL PROTEIN 7.3 GM/DL (6.4-8.2)
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
[2017-09-24] MEDS ORDERED: CYCL10TA9 PO (10:38)
[2017-09-24] MEDS ORDERED: ORPHENADRINE 60 MG/2 ML (NORFLEX) AMP IV ONE (10:45)
[2017-09-24] MEDS ORDERED: fentaNYL INJECTION 100 MCG/2 ML AMP IVP ONE (10:45)
[2017-09-24 11:11] VITALS: BP 132/78
== END 2017-09-24 11:11 | disposition home or self-care (01) ==
LOC: EDUNIT# 08:53 → ER 08:54
DX: S13.4XXA Sprain of ligaments of cervical spine, initial encounter (principal); Z87.39 Personal history of other diseases of the musculoskeletal system and connective tissue; V44.5XXA Car driver injured in collision with heavy transport vehicle or bus in traffic accident, initial encounter
CPT/HCPCS: 36415; 70450; 72125; 80053; 80320; 85025; 96374; 96375; 99283

== ENCOUNTER → 2017-10-26 | Outpatient (CLI) | payer BC, OTHER ==
[~2017-10-26] MED LIST changes: +CYCL10TA9 PO
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
== END ==
LOC: RAD 13:47
DX: M48.02 Spinal stenosis, cervical region (principal); M47.22 Other spondylosis with radiculopathy, cervical region; V89.2XXA Person injured in unspecified motor-vehicle accident, traffic, initial encounter
CPT/HCPCS: 72141

== ENCOUNTER → 2017-12-22 | Outpatient (CLI) | payer BC ==
--- NOTE | 2017-12-22 13:46 | Diagnostic Imaging Report ---
EXAMINATION: Left knee, 3 views. COMPARISON: None. HISTORY: A 47-year-old female, left knee pain and swelling. No known trauma. FINDINGS: There is moderate to severe joint space loss of the patellofemoral compartment. There is no identified large knee joint effusion. There is mild degenerative type enthesopathy at the insertion of the distal quadriceps tendon. There is a focal area of high attenuation projecting in the medial aspect of the joint space, potentially could relate to meniscal ossicle. There is no identified acute-appearing fracture. There is no cortical or aggressive bone destruction. IMPRESSION: 1. Moderate to severe patellofemoral compartment arthritis. 2. No identified knee joint effusion. 3. No identified acute bony abnormality. Dictated by: Dictated on workstation # [id number]
== END ==
LOC: RAD 12:41
PROVIDERS: ATTEND Nurse Practitioner Family
DX: M17.12 Unilateral primary osteoarthritis, left knee (principal)
CPT/HCPCS: 73562

== ENCOUNTER → 2019-05-23 | Outpatient (CLI) | payer BC ==
--- NOTE | 2019-05-26 08:16 | Diagnostic Imaging Report ---
Indication: Routine screening. Comparison is made with prior mammogram 07/06/2017 and 02/23/2016. 2-D and 3-D bilateral screening mammography was performed with CAD. Scattered fibroglandular densities are identified bilaterally. The parenchymal pattern is stable. No mass or malignant appearing microcalcifications are seen. The axillae are unremarkable. Impression: BI-RADS category one No mammographic features suspicious for malignancy are identified. ACR BI-RADS Category 1: Negative. Result letter will be mailed to the patient. Note: At least 10% of breast cancer is not imaged by mammography. Dictated by: Dictated on workstation # [id number]
== END ==
LOC: RAD 14:32
DX: Z12.31 Encounter for screening mammogram for malignant neoplasm of breast (principal)
CPT/HCPCS: 77067

== ENCOUNTER 2019-08-25 05:38 | Outpatient (CLI) | payer BC ==
[~2019-08-25] VITALS: Ht 172.7 cm; Wt 74.1 kg
[2019-08-25] MEDS ORDERED: NABU500T PO (14:28)
[2019-08-25] MEDS ORDERED: HYDR-3820 PO (14:28)
[2019-08-25] MEDS ORDERED: FENT1PAT10 TD (14:28)
[2019-08-25] MEDS ORDERED: AMIT150T PO (14:28)
== END 2019-08-25 14:30 ==
LOC: PREOP 05:38
PROVIDERS: ATTEND Internal Medicine
DX: Z01.818 Encounter for other preprocedural examination (principal)

== ENCOUNTER 2019-08-29 06:51 | Day surgery (SDC) | payer BC ==
--- NOTE | 2019-08-18 12:36 | HISTORY AND PHYSICAL ---
DATE OF SERVICE: COLONOSCOPY HISTORY AND PHYSICAL HISTORY OF PRESENT ILLNESS: The patient is a 48-year-old white female referred by Dr. Coreas for screening colonoscopy. She is higher than average risk as her mother was diagnosed with colon cancer in her early 60s. Father also of pancreatic cancer in his 70s. She denies bowel habit change or constipation issues, on chronic narcotic therapy for back pain. She has noted no blood in her stool. Denies melena. CURRENT MEDICATIONS: Nabumetone 500 mg b.i.d., amitriptyline 150 mg daily, fentanyl 75 mcg patch daily and hydrocodone 10/325 one to two q.6 p.r.n. PAST MEDICAL HISTORY: Significant for chronic low back pain and scoliosis. PAST SURGICAL HISTORY: Significant for an abdominal hysterectomy in 2011 for which ovaries were left. She has had several arthroscopic surgeries of her right knee and section x3. REVIEW OF SYSTEMS: CONSTITUTIONAL: She denies night sweats, chills, fever or change in weight. GASTROINTESTINAL: As noted in the HPI. CARDIOVASCULAR: She denies chest pain, orthopnea, PND, pedal edema or dyspnea on exertion. PULMONARY: She denies problems with cough, wheezing or shortness of breath. PHYSICAL EXAMINATION: GENERAL: Reveals a normal weight white female in no acute distress. VITAL SIGNS: Blood pressure 138/90, heart rate 70 and regular. HEENT: Unremarkable. CHEST: Clear. CARDIOVASCULAR: Reveals a regular rate and rhythm without murmur, S3 or S4. ABDOMEN: Soft, supple without mass, organomegaly or tenderness. EXTREMITIES: Reveal no cyanosis, clubbing or edema. ASSESSMENT AND PLAN: The patient is set up for screening colonoscopy, deemed to be of higher than average risk due to first degree relative, her mother diagnosed with colon cancer in her early 60s. No previous history of colonoscopy. Prep instructions were given and questions were answered. I thank you for the referral of this pleasant lady. Job ID: [id number] DocumentID: [id number] Dictated Date: 08/11/2019 17:39:43 Emd Special Education Teacher Date: 08/11/2019 18:12:50 Dictated By: JOVI DONOVAN MD
[~2019-08-29] VITALS: Ht 172.7 cm; Wt 74.1 kg
[~2019-08-29 06:51] MED LIST changes: +AMIT150T PO; +FENT1PAT10 TD; +HYDR-3820 PO; +NABU500T PO
[2019-08-29] MEDS ORDERED: LACTATED RINGERS 1,000 ML IV ONE (07:02)
[2019-08-29] MEDS ORDERED: PROPOFOL INJECTION 50 ML IV ONE (07:30)
[2019-08-29] MEDS ORDERED: MIDAZOLAM 2 MG/2 ML (VERSED) VIAL ONE (07:31)
[2019-08-29] MEDS ORDERED: LIDOCAINE JELLY 2% 6 ML SYRINGE ONE (07:32)
--- NOTE | 2019-08-29 07:34 | Pre-Op Note & Conscious Sedat ---
Pre-Operative Progress Note H&P Reviewed The H&P was reviewed, patient examined and no changes noted. Date H&P Reviewed: Aug 29, 2019 Time H&P Reviewed: 07:25 Conscious Sedation Pre-Proced ASA Score 2 For ASA 3 and 4: Consider anesthesia and medical clearance. Also, for patients with a history of failed moderate sedation consider anesthesia. Airway Lungs Heart ASA score ASA 1: a normal healthy patient ASA 2: a patient with a mild systemic disease (mid diabetes, controlled hypertension, obesity ASA 3: a patient with a severe systemic disease that limits activity (angina, COPD, prior Myocardial infarction) ASA 4: a patient with an incapacitating disease that is a constant threat to life (CHF, renal failure) ASA 5: a moribund patient not expected to survive 24 hrs. (ruptured aneurysm) ASA 6: a declared brain- patient whose organs are being harvested. For emergent operations, add the letter E after the classification Mallampati Classification Grade 2 Sedation Plan Analgesia, Amnesia, Plan communicated to team members, Discussed options with patient/fam, Discussed risks with patient/fam The patient is an appropriate candidate to undergo the planned procedure, sedation, and anesthesia. The patient immediately re-assessed prior to indication. JOVI DONOVAN MD Aug 29, 2019 07:34
[2019-08-29] MEDS ORDERED: LACTATED RINGERS 1,000 ML IV STA (07:48)
[2019-08-29 07:51] VITALS: BP 127/85
[2019-08-29] MEDS ORDERED: LIDOCAINE JELLY 2% 6 ML SYRINGE MM PRN (08:00)
[2019-08-29 08:05] VITALS: BP 123/75
[2019-08-29 08:10] VITALS: BP 134/89
[2019-08-29 08:15] VITALS: BP 123/75
[2019-08-29 08:45] VITALS: BP 134/84
[2019-08-29 12:27] VITALS: BP 134/84
--- NOTE | 2019-08-29 12:54 | OPERATIVE REPORT ---
DATE OF SERVICE: 08/29/2019 COLONOSCOPY SUMMARY INDICATION FOR THE PROCEDURE: Screening colonoscopy. DESCRIPTION OF PROCEDURE: The patient was placed in left lateral decubitus position. Prior to undergoing colonoscopy, digital rectal evaluation was performed. Anal sphincter tone was normal. There were no abnormalities of digital inspection of the anal canal or distal rectal vault. The colonoscope was then inserted into the rectum and under direct visualization advanced to the cecum. The cecum was identified by identification of ileocecal valve, cecal strap and appendiceal orifice. Photographic documentation was obtained. Careful inspection was made as colonoscope withdrawn. Quality of prep was good. FINDINGS: There was no evidence for internal or external hemorrhoids. The rectum, sigmoid colon, descending colon, splenic flexure, transverse colon, hepatic flexure, ascending colon and cecum were unremarkable. No evidence for diverticular disease, neoplasia or other abnormalities were noted. there was redundancy of the colon with no other abnormalities being appreciated. ASSESSMENT: Other than some redundancy to the colon there were no other abnormalities noted. No evidence for neoplasia on today's evaluation. Considering family history of first-degree relative with colon cancer, index case being her mother diagnosed in her mid to late 60s, would advocate repeat surveillance colonoscopy in 5 years. I thank you for the referral of this pleasant lady. Job ID: [id number] DocumentID: [id number] Dictated Date: 08/29/2019 08:13:09 Sharepoint Architect Date: 08/29/2019 12:54:04 Dictated By: JOVI DONOVAN MD
--- NOTE | 2019-08-29 13:15 | Anesthesia-General Post-Op ---
MAC Patient Condition Mental Status/LOC: Same as Preop Cardiovascular: Satisfactory Nausea/Vomiting: Absent Respiratory: Satisfactory Pain: Controlled Complications: Absent Post Op Complications Complications None Follow Up Care/Instructions Patient Instructions None needed. Anesthesiology Discharge Order Discharge Order Patient is doing well, no complaints, stable vital signs, no apparent adverse anesthesia problems. No complications reported per nursing. BONITA CHEUNG CRNA Aug 29, 2019 13:15
== END 2019-08-29 09:10 | disposition home or self-care (01) ==
LOC: ENDO 06:51
PROVIDERS: ATTEND Internal Medicine
DX: Z12.11 Encounter for screening for malignant neoplasm of colon (principal); G89.29 Other chronic pain; M54.5 Low back pain; Z90.710 Acquired absence of both cervix and uterus; Z80.0 Family history of malignant neoplasm of digestive organs; Z79.891 Long term (current) use of opiate analgesic; Z79.899 Other long term (current) drug therapy

== ENCOUNTER → 2019-12-12 | Outpatient (CLI) | payer BC ==
[~2019-12-12] MED LIST changes: -HYDR-3820 PO
--- NOTE | 2019-12-12 13:37 | Diagnostic Imaging Report ---
INDICATION: Increasing back pain. TIME OF EXAM: 12:48 PM Comparison is made with prior thoracic spine radiographs from 09/17/2014. FINDINGS: Frontal and lateral views of the thoracic spine were obtained. There continues to be right convexity thoracic scoliotic curvature. Vertebral body heights are maintained. No acute compression fracture is identified. There is generalized lower cervical and thoracic degenerative disc disease with disc space narrowing and marginal spurring. Paraspinous line is intact. Pedicles are unremarkable. IMPRESSION: Thoracic scoliosis and spondylosis. No acute bony abnormality is detected. Dictated by: Dictated on workstation # [id number]
--- NOTE | 2019-12-12 14:15 | Diagnostic Imaging Report ---
INDICATION: Low back pain TECHNIQUE: AP, Lateral and Spot imaging of the lumbar spine CORRELATION STUDY: 02/27/2017 FINDINGS: There is mild leftward curvature of the superior lumbar spine, apex at approximately the L2-L3 level. There is transitional anatomy with what appears to be lumbarization at S1 with nearly 6 lumbar type vertebral body segments noted. There is chronic appearing deformity about the S1 level. There is no acute appearing compression deformity. The intervertebral disc spaces overall appear to be fairly well-maintained. SI joints are unremarkable. Cholecystectomy clips in the right upper quadrant. IMPRESSION: Mild leftward curvature lumbar spine appearing generally stable. Dictated by: Dictated on workstation # [id number]
== END ==
LOC: RAD 12:24
DX: M43.8X6 Other specified deforming dorsopathies, lumbar region (principal); M47.814 Spondylosis without myelopathy or radiculopathy, thoracic region; M41.84 Other forms of scoliosis, thoracic region
CPT/HCPCS: 72070; 72100

== ENCOUNTER → 2020-03-16 | Outpatient (CLI) | payer BC ==
--- NOTE | 2020-03-16 18:24 | Diagnostic Imaging Report ---
INDICATION: Right knee pain. COMPARISON: None available. TECHNIQUE: Three radiographs of the right knee dated March 16, 2020. FINDINGS: No acute fracture or dislocation. No destructive osseous process. Moderate lateral joint space narrowing. Minimal medial joint space narrowing. Minimal osteophytosis. Moderate-sized knee joint effusion. No suspicious radiopaque foreign body. 6 mm rounded calcification overlying the posterior aspect of the knee joint line on the lateral radiograph is present. IMPRESSION: 1. No acute fracture. 2. [id number] scattered degenerative changes with associated moderate-sized knee joint effusion. 3. 6 mm rounded calcification along the posterior aspect of the knee joint line. This may simply relate to an osteophyte, though loose body would be an additional consideration. Dictated by: Dictated on workstation # [id number]
== END ==
LOC: RAD 17:09
PROVIDERS: ATTEND Nurse Practitioner Family
DX: M17.11 Unilateral primary osteoarthritis, right knee (principal); M25.461 Effusion, right knee; M25.861 Other specified joint disorders, right knee
CPT/HCPCS: 73562

== ENCOUNTER → 2020-07-16 | Outpatient (CLI) | payer BC ==
[~2020-07-16] MED LIST changes: +NABU-88 PO; -NABU500T PO
--- NOTE | 2020-07-19 11:20 | Diagnostic Imaging Report ---
INDICATION: Routine screening. COMPARISON: 05/23/2019 and 07/06/2017. TECHNIQUE: 2D and 3D bilateral screening mammography was performed with CAD. FINDINGS: Both breasts remain heterogeneously dense, limiting the sensitivity of mammography. The parenchymal pattern is stable. No mass or malignant appearing microcalcifications are seen. The axillae are unremarkable. IMPRESSION: No mammographic features suspicious for malignancy are identified. ACR BI-RADS Category 1: Negative. Result letter will be mailed to the patient. Note: At least 10% of breast cancer is not imaged by mammography. Dictated by: Dictated on workstation # [id number]
== END ==
LOC: RAD 15:38
DX: Z12.31 Encounter for screening mammogram for malignant neoplasm of breast (principal)
CPT/HCPCS: 77063; 77067

== ENCOUNTER 2020-07-27 14:16 | Emergency (ER) | payer BC ==
[~2020-07-27] VITALS: Ht 175 cm; Wt 73.0 kg
[2020-07-27] MEDS ORDERED: FAMOTIDINE 20MG/2ML IV (PEPCID) IV STA (14:32)
[2020-07-27] MEDS ORDERED: LACTATED RINGERS 1,000 ML IV STA (14:32)
--- NOTE | 2020-07-27 14:32 | ED Abdominal Pain ---
General Stated Complaint: COVID EXPOSURE Source of Information: Patient Exam Limitations: No Limitations History of Present Illness Date Seen by Provider: Jul 27, 2020 Time Seen by Provider: 14:32 Initial Comments 49-year-old female presents with lower abdominal cramping and pain along with some vomiting. She reports she's had multiple episodes of vomiting. She denies pain in her chest after the vomiting. Patient reports the symptoms started today. Patient has no known COVID exposure. Patient has no fevers chills cough, loss of sense of taste or smell. She's not complain of urinary symptoms. Allergies and Home Medications Allergies Coded Allergies: Vanessa Known Allergies (Verified Allergy, Unknown, 10/02/06) Home Medications Amitriptyline HCl 150 Mg Tablet, 225 MG PO HS, (Reported) TAKE 1.5 TABS Fentanyl 1 Each Patch.td72, 75 MCG TD Q72H, (Reported) Hydrocodone Bit/Acetaminophen 1 Each Tablet, 1 TAB PO Q6H PRN for PAIN-MODERATE, (Reported) Nabumetone 500 Mg Tablet, 500 MG PO BID, (Reported) Patient Home Medication List Home Medication List Reviewed: Yes Review of Systems Review of Systems Constitutional: No chills, No dizziness, No fever Respiratory: Denies Cough, Denies Shortness of Air Cardiovascular: See HPI; Denies Edema, Denies Irregular Heart Rate, Denies Lightheadedness Gastrointestinal: Abdominal Pain; Denies Constipated, Denies Diarrhea; Nausea, Vomiting Musculoskeletal: no symptoms reported Skin: no symptoms reported Psychiatric/Neurological: No Symptoms Reported Endocrine: No Symptoms Reported Hematologic/Lymphatic: No Symptoms Reported Past Nmvpbgi-Csequs-Dcplxh Hx Past Med/Social Hx: Reviewed Nursing Past Med/Soc Hx Patient Social History Recent Hopitalizations: No Immunizations Up To Date Date of Influenza Vaccine: Jun 10, 2019 Seasonal Allergies Seasonal Allergies: No Past Medical History Surgeries: Yes (THYROID NODULE, C/S X3, SEVERAL KNEE SCOPES) Section, Gallbladder, Hysterectomy Respiratory: No Cardiac: No Neurological: No Reproductive Disorders: No Genitourinary: No Gastrointestinal: No Musculoskeletal: Yes Scoliosis, Chronic Back Pain Endocrine: No HEENT: No Cancer: No Psychosocial: Yes Sleep Difficulties Integumentary: No Blood Disorders: No Physical Exam Vital Signs Vital Signs - First Documented 07/27/20 14:30 Temp 36.0 Pulse 80 Resp 20 B/P (MAP) 143/95 (111) Pulse Ox 98 Capillary Refill : Height/Weight/BMI Height: 5'9.00" Weight: 165lbs. 0.0oz. 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, no motor/sensory deficits, alert, normal mood/affect, oriented x 3 Skin: normal color, warm/dry Progress/Results/Core Measures Results/Orders Lab Results Laboratory Tests Test 07/27/20 15:10 Range/Units White Blood Count 11.1 H 4.3-11.0 10^3/uL Red Blood Count 3.97 3.80-5.11 10^6/uL Hemoglobin 13.0 11.5-16.0 g/dL Hematocrit 38 35-52 % Mean Corpuscular Volume 97 80-99 fL Mean Corpuscular Hemoglobin 33 25-34 pg Mean Corpuscular Hemoglobin Concent 34 32-36 g/dL Red Cell Distribution Width 11.6 10.0-14.5 % Platelet Count 304 130-400 10^3/uL Mean Platelet Volume 9.7 9.0-12.2 fL Immature Granulocyte % (Auto) 2 % Neutrophils (%) (Auto) 90 H 42-75 % Lymphocytes (%) (Auto) 4 L 12-44 % Monocytes (%) (Auto) 3 0-12 % Eosinophils (%) (Auto) 0 0-10 % Basophils (%) (Auto) 0 0-10 % Neutrophils # (Auto) 10.0 H 1.8-7.8 10^3/uL Lymphocytes # (Auto) 0.4 L 1.0-4.0 10^3/uL Monocytes # (Auto) 0.4 0.0-1.0 10^3/uL Eosinophils # (Auto) 0.0 0.0-0.3 10^3/uL Basophils # (Auto) 0.0 0.0-0.1 10^3/uL Immature Granulocyte # (Auto) 0.3 H 0.0-0.1 10^3/uL Sodium Level 140 135-145 MMOL/L Potassium Level 3.6 3.6-5.0 MMOL/L Chloride Level 101 98-107 MMOL/L Carbon Dioxide Level 27 21-32 MMOL/L Anion Gap 12 5-14 MMOL/L Blood Urea Nitrogen 11 7-18 MG/DL Creatinine 0.69 0.60-1.30 MG/DL Estimat Glomerular Filtration Rate > 60 BUN/Creatinine Ratio 16 Glucose Level 120 H 70-105 MG/DL Calcium Level 8.7 8.5-10.1 MG/DL Corrected Calcium 8.4 L 8.5-10.1 MG/DL Total Bilirubin 0.5 0.1-1.0 MG/DL Aspartate Amino Transf (AST/SGOT) 38 H 5-34 U/L Alanine Aminotransferase (ALT/SGPT) 36 0-55 U/L Alkaline Phosphatase 73 40-136 U/L Troponin I < 0.028 <0.028 NG/ML C-Reactive Protein High Sensitivity 0.49 0.00-0.50 MG/DL Total Protein 7.0 6.4-8.2 GM/DL Albumin 4.4 3.2-4.5 GM/DL Lipase 25 8-78 U/L Procalcitonin 0.06 <0.10 NG/ML My Orders Orders - KANDICE BETH DO Acute Abd Series (07/27/20 14:32) Comprehensive Metabolic Panel (07/27/20 14:32) Hs C Reactive Protein (07/27/20 14:32) Lipase (07/27/20 14:32) Procalcitonin (Pct) (07/27/20 14:32) Troponin I (07/27/20 14:32) Ua Culture If Indicated (07/27/20 14:32) Influenza A And B Antigens (07/27/20 14:32) Ondansetron Injection (Zofran Injectio (07/27/20 14:45) Lactated Ringers (Lr 1000 Ml Iv Solution (07/27/20 14:32) Famotidine Injection (Pepcid Injection) (07/27/20 14:32) Ed Iv/Invasive Line Start (07/27/20 14:32) Cbc With Automated Diff (07/27/20 15:33) Manual Differential (07/27/20 15:10) Phenergan Iv (07/27/20 16:14) Medications Given in ED Current Medications Medications Dose Ordered Sig/Mallory Route Start Time Stop Time Status Last Admin Dose Admin Ondansetron HCl 4 mg ONCE ONCE IVP 07/27/20 14:45 07/27/20 14:46 DC 07/27/20 14:58 4 MG Vital Signs/I&O 07/27/20 14:30 Temp 36.0 Pulse 80 Resp 20 B/P (MAP) 143/95 (111) Pulse Ox 98 Progress Progress Note : Time: 16:18 Progress Note Patient with negative x-ray, she does have a slight white count likely de- margination from vomiting. She has a negative CRP, negative pro-calcitonin. Patient likely with GI bug or other possible causes of vomiting. Physical exam is benign. Patient reports she still has nausea but has not vomited since Zofran.. I will give her 1 dose of Phenergan IV and she will be discharged home with Zofran by mouth. She should follow with her primary care provider in the next 1-2 days if symptoms are not improving Departure Impression Primary Impression: Nausea and vomiting Qualified Codes: R11.2 - Nausea with vomiting, unspecified Disposition: 01 HOME, SELF-CARE Condition: Stable Departure-Patient Inst. Referrals: NASIR VELASQUEZ MD (PCP/Family) Primary Care Physician Patient Instructions: Nausea and Vomiting, Adult Add. Discharge Instructions: Follow-up with your primary care provider in 2-3 days if symptoms are not improving Scripts Ondansetron (Ondansetron Odt) 4 Mg Tab.rapdis 4 MG PO Q6H PRN for NAUSEA/VOMITING, #20 TAB 0 Refills Prov: KANDICE BETH DO 07/27/20 Work/School Note: Work Release Form Date Seen in the Emergency Department: Jul 27, 2020 Return to Work: Jul 29, 2020 KANDICE BETH DO Jul 27, 2020 14:32
[2020-07-27] MEDS ORDERED: ONDANSETRON 4 MG/2 ML (SDV) Z0FRAN IVP ONE (14:45)
[2020-07-27 15:37] LABS: ALBUMIN 4.4 GM/DL (3.2-4.5)
[2020-07-27 15:38] LABS: CHLORIDE 101 MMOL/L (98-107); POTASSIUM 3.6 MMOL/L (3.6-5.0); SODIUM 140 MMOL/L (135-145)
[2020-07-27 15:39] LABS: CALCIUM 8.7 MG/DL (8.5-10.1)
[2020-07-27 15:40] LABS: GLUCOSE 120 MG/DL (70-105)
[2020-07-27 15:41] LABS: CARBON DIOXIDE 27 MMOL/L (21-32)
[2020-07-27 15:42] LABS: BILIRUBIN,TOTAL 0.5 MG/DL (0.1-1.0)
--- NOTE | 2020-07-27 15:43 | Diagnostic Imaging Report ---
INDICATION: Abdominal pain and vomiting. TIME OF EXAM: 3:24 PM. FINDINGS: The heart size is normal. There is right convexity thoracic scoliotic curvature. The lungs are clear. No infiltrate or effusion is identified. No free air is identified. There are surgical clips in the gallbladder fossa. The bowel gas pattern appears nonobstructed. No pathologic calcifications are seen. IMPRESSION: No acute abnormality is detected. Dictated by: Dictated on workstation # [id number]
[2020-07-27 15:44] LABS: ALKALINE PHOSPHATASE 73 U/L (40-136); CREATININE SERUM 0.69 MG/DL (0.60-1.30); GFR ESTIMATED > 60
[2020-07-27 15:45] LABS: BUN/CREATININE RATIO 16
[2020-07-27 15:47] LABS: ALANINE AMINOTRANSFERASE 36 U/L (0-55); LIPASE 25 U/L (8-78)
[2020-07-27 16:03] LABS: BASOPHILS % (AUTO) 0 % (0-10); EOSINOPHILS % (AUTO) 0 % (0-10); HEMATOCRIT 38 % (35-52); LYMPHOCYTES # (AUTO) 0.4 10^3/uL (1.0-4.0); LYMPHOCYTES % (AUTO) 4 % (12-44); MEAN CORPUSCULAR HEMOGLOBIN 33 pg (25-34); MEAN CORPUSCULAR HGB CONC 34 g/dL (32-36); MEAN CORPUSCULAR VOLUME 97 fL (80-99); MEAN PLATELET VOLUME 9.7 fL (9.0-12.2); MONOCYTES # (AUTO) 0.4 10^3/uL (0.0-1.0); MONOCYTES % (AUTO) 3 % (0-12); NEUTROPHILS % (AUTO) 90 % (42-75); PLATELET COUNT 304 10^3/uL (130-400); WHITE BLOOD COUNT 11.1 10^3/uL (4.3-11.0)
[2020-07-27] MEDS ORDERED: PROMETHAZINE INJ 25 MG/ML (PHENERGAN) AMP IVP STA (16:14)
[2020-07-27] MEDS ORDERED: ONDA4TAB11 PO (16:21)
[2020-07-27 16:57] LABS: LYMPHOCYTES % (MANUAL) 4 %; MONOCYTES % (MANUAL) 3 %; NEUTROPHILS % (MANUAL) 93 %; RBC MORPH NORMAL
[2020-07-27 17:07] VITALS: BP 143/95
== END 2020-07-27 17:16 | disposition home or self-care (01) ==
LOC: EDUNIT# 14:16 → ER 14:18
DX: R11.2 Nausea with vomiting, unspecified (principal); G89.29 Other chronic pain; M54.9 Dorsalgia, unspecified; Z79.891 Long term (current) use of opiate analgesic
CPT/HCPCS: 36415; 74022; 80053; 83690; 84145; 84484; 85007; 85027; 86141

== ENCOUNTER → 2021-07-22 | Outpatient (CLI) | payer BC ==
[~2021-07-22] MED LIST changes: -NABU-88 PO; +NABU500T8 PO; +ONDA4TAB11 PO
--- NOTE | 2021-07-22 16:17 | Diagnostic Imaging Report ---
INDICATION: Routine screening. COMPARISON is made with prior mammograms from 07/16/2020 and 05/23/2019. 2-D and 3-D bilateral screening mammography was performed with CAD. Both breasts are heterogeneously dense, limiting the sensitivity of mammography. The parenchymal pattern is stable. No mass or malignant-appearing microcalcifications are seen. Axillae are unremarkable. IMPRESSION: BI-RADS Category 1 No mammographic features suspicious for malignancy are identified. ACR BI-RADS Category 1: Negative. Result letter will be mailed to the patient. Note: At least 10% of breast cancer is not imaged by mammography. Dictated by: Dictated on workstation # [id number]
== END ==
LOC: RAD 15:00
DX: Z12.31 Encounter for screening mammogram for malignant neoplasm of breast (principal)
CPT/HCPCS: 77063; 77067

== ENCOUNTER → 2022-06-01 | Outpatient (CLI) | payer BC ==
[~2022-06-01] MED LIST changes: +CYCL10TA25 PO; -CYCL10TA9 PO; +PRAM0.5T2 PO; +ROSU10TA28 PO
== END ==
LOC: PREOP 05:33
PROVIDERS: ATTEND Internal Medicine
DX: Z01.818 Encounter for other preprocedural examination (principal)

== ENCOUNTER 2022-06-02 09:59 | Day surgery (SDC) | payer BC ==
--- NOTE | 2022-06-01 08:27 | HISTORY AND PHYSICAL ---
DATE OF SERVICE: PANENDOSCOPY HISTORY AND PHYSICAL DATE OF ADMISSION: 06/02/2022 HISTORY OF PRESENT ILLNESS: The patient is a 51-year-old white female referred by TUCKER Valenzuela, for colonoscopic and likely EGD evaluation and for history of significant weight loss at least 20 pounds since the beginning of the year with a family history for colon cancer, index case being her mother diagnosed in her mid 60s. She may well have a colonoscopy 3 years ago at the age of 48. Her first revealed no abnormalities. Her mother also later had a history of pancreatic cancer, which caused her . She denies abdominal pain, has been losing weight despite trying to increase her intake. She does report some loss of appetite. Denies nausea, vomiting, melena or bright red blood per rectum, cramping or change in bowel habits. She was noted apparently to be anemic on recent blood tests done through [facility]. We had her sign a release of information. There is notation in Kera Smith last office note that she had a normal lipase, liver enzymes, TSH, T4, and alpha-fetoprotein level of 5.8. PAST MEDICAL HISTORY: Significant for chronic back pain for which the patient has been narcotic dependent for many years, hyperlipidemia with no known history of vascular disease, restless leg syndrome. MEDICATIONS: Nabumetone 500 mg daily, rosuvastatin 10 mg daily, pramipexole unknown dose daily, fentanyl patch 75 mcg every 72 hours and 10 mg of hydrocodone q.4 hours p.r.n. SOCIAL HISTORY: The patient is employed with no past smoking or significant alcohol history. FAMILY HISTORY: As noted in the HPI. REVIEW OF SYSTEMS: CONSTITUTIONAL: The patient has noted some fatigue. She became teary eyed. Most concerned about weight loss being due to underlying cancer. Her weight loss and anemia being due to underlying cancer. PULMONARY: Denies cough, wheezing or shortness of breath. GASTROINTESTINAL: As noted in the HPI. CARDIOVASCULAR: No chest discomfort, orthopnea, PND or pedal edema. PHYSICAL EXAMINATION: GENERAL: Reveals a thin white female, anxious, otherwise, not in acute distress. VITAL SIGNS: At the time of her last office weight 3 years ago during her colonoscopy consultation from Dr. Coreas, her weight was 163.6 pounds. Current weight was 129.8 pounds, blood pressure 120/80. HEENT: Did not reveal evidence for significant pallor. Sclerae nonicteric. CHEST: Clear. CARDIOVASCULAR: Reveals a regular rate and rhythm without murmur, S3 or S4. ABDOMEN: Soft, supple. Mild left upper quadrant discomfort to palpation without rebound, guarding, organomegaly or mass. No pain elsewhere. No distention. EXTREMITIES: Reveal no cyanosis, clubbing or edema. ASSESSMENT AND PLAN: For further evaluation of significant weight loss and anemia with family history for colon cancer, the patient is being set up for colonoscopy with EGD to follow if colonoscopy is unremarkable. Further recommendations will be pending endoscopy. I thank you for the referral of this pleasant lady. She is being set up for 06/02/2022. Prep instructions were given. Medical record was reviewed and questions answered. Job ID: [id number] DocumentID: [id number] Dictated Date: 05/31/2022 17:22:44 Glass Sander Date: 05/31/2022 18:00:34 Dictated By: JOVI DONOVNA MD
[~2022-06-02] VITALS: Ht 172.7 cm; Wt 56.7 kg
[~2022-06-02 09:59] MED LIST changes: -PRAM0.5T2 PO; -ROSU10TA28 PO
[2022-06-02] MEDS ORDERED: LACTATED RINGERS 1,000 ML IV STA (10:12)
[2022-06-02] MEDS ORDERED: HURRICAINE EXT TUBE (BENZOCAINE) XX PRN (10:15)
--- NOTE | 2022-06-02 10:22 | Pre-Op Note & Conscious Sedat ---
Pre-Operative Progress Note Date H&P Reviewed: Jun 02, 2022 Time H&P Reviewed: 10:20 History & Physical: H&P Reviewed, Patient Examed, No changes noted Pre-Op Diagnosis: weight loss anemia fh of colon cancer Conscious Sedation Pre-Proced ASA Score 2 For ASA 3 and 4: Consider anesthesia and medical clearance. Also, for patients with a history of failed moderate sedation consider anesthesia. Airway Lungs Heart ASA score ASA 1: a normal healthy patient ASA 2: a patient with a mild systemic disease (mid diabetes, controlled hypertension, obesity ASA 3: a patient with a severe systemic disease that limits activity (angina, COPD, prior Myocardial infarction) ASA 4: a patient with an incapacitating disease that is a constant threat to life (CHF, renal failure) ASA 5: a moribund patient not expected to survive 24 hrs. (ruptured aneurysm) ASA 6: a declared brain- patient whose organs are being harvested. For emergent operations, add the letter E after the classification Mallampati Classification Grade 1 Sedation Plan Analgesia, Amnesia, Plan communicated to team members, Discussed options with patient/fam, Discussed risks with patient/fam The patient is an appropriate candidate to undergo the planned procedure, sedation, and anesthesia. The patient immediately re-assessed prior to indication. JOVI DONOVAN MD Jun 02, 2022 10:22
[2022-06-02 10:23] VITALS: BP 113/79
[2022-06-02] MEDS ORDERED: ROSU10TA28 PO (10:44)
[2022-06-02] MEDS ORDERED: PRAM0.5T2 PO (10:44)
[2022-06-02] MEDS ORDERED: MIDAZOLAM 2 MG/2 ML (VERSED) VIAL ONE (11:02)
[2022-06-02] MEDS ORDERED: PROPOFOL INJECTION 50 ML IV ONE ×2 (11:02→11:16)
[2022-06-02 12:00] VITALS: BP 121/72
[2022-06-02 12:05] VITALS: BP 108/70
--- NOTE | 2022-06-02 12:05 | Progress Note-Post Operative ---
Post-Procedure Note Physician (s)/Vehicle Maintenance Supervisor (s) Physician JOVI DONOVAN MD Pre-Procedure Diagnosis Pre-Procedure Diagnosis: weight loss anemia fh of colon cancer Post-Procedure Diagnosis Post-operative diagnosis: normal EGD and colon JOVI DONOVAN MD Jun 02, 2022 12:05
[2022-06-02 12:30] VITALS: BP 120/81
[2022-06-02 12:40] VITALS: BP 120/81
--- NOTE | 2022-06-02 12:42 | Anesthesia-General Post-Op ---
MAC Patient Condition Mental Status/LOC: Same as Preop Cardiovascular: Satisfactory Nausea/Vomiting: Absent Respiratory: Satisfactory Pain: Controlled Complications: Absent Post Op Complications Complications None Follow Up Care/Instructions Patient Instructions None needed. Anesthesiology Discharge Order Discharge Order Patient is doing well, no complaints, stable vital signs, no apparent adverse anesthesia problems. No complications reported per nursing. ROGELIO LAI CRNA Jun 02, 2022 12:42
--- NOTE | 2022-06-02 21:09 | OPERATIVE REPORT ---
DATE OF SERVICE: PANENDOSCOPY SUMMARY INDICATION FOR THE PROCEDURE: Done for anemia, significant weight loss and family history for colon cancer. DESCRIPTION OF PROCEDURE: The patient was placed in the left lateral decubitus position. Prior to undergoing colonoscopy, digital rectal evaluation was performed. Anal sphincter tone was normal and the perianal reflexes intact. No abnormalities were noted on digital inspection of anal canal or distal rectal vault. The colonoscope was then inserted into the rectum and under direct visualization advanced to cecum. The cecum was identified by identification of ileocecal valve and cecal strap. Photographic documentation was obtained. Careful inspection was made as colonoscope was withdrawn. Quality of prep was good. FINDINGS: There was no evidence for internal or external hemorrhoids in the rectum, sigmoid colon, descending colon, transverse colon, hepatic flexure, ascending colon, and cecum were unremarkable except for left-sided colonic dilatation. We then proceeded with EGD evaluation. The upper endoscope was inserted into the oral cavity and under direct visualization, esophagus was intubated. Endoscope was passed down the esophagus through stomach and second portion of the duodenum. A careful inspection was made as the endoscope was withdrawn. FINDINGS: Proximal, mid and distal esophagus were unremarkable. The Z line was distinct. There was no evidence for hiatal hernia formation. No evidence for erosive esophagitis, rings, webs, strictures or Purcell's change. The cardia and fundus of the stomach were unremarkable. There was some linear streaking antral erythema present. Biopsies was obtained and submitted for histopathology and Helicobacter evaluation. No evidence for erosions or ulceration were noted. The pylorus, pyloric channel, the duodenal bulb and second portion of duodenum were unremarkable. Normal-appearing villous architecture of the duodenum was noted. ASSESSMENT: Linear antral erythema was present suggesting some mild gastritis. I doubt that this explains the patient's weight loss. A biopsy was obtained and submitted for histopathology and Helicobacter evaluation. No other abnormalities noted on EGD today. Job ID: [id number] DocumentID: [id number] Dictated Date: 06/02/2022 12:11:28 Frog Catcher Date: 06/02/2022 21:08:41 Dictated By: JOVI DONOVAN MD
== END 2022-06-02 12:40 | disposition home or self-care (01) ==
LOC: ENDO 09:59
PROVIDERS: ATTEND Internal Medicine
DX: D64.9 Anemia, unspecified (principal); Z80.0 Family history of malignant neoplasm of digestive organs

== ENCOUNTER → 2022-06-07 | Outpatient (CLI) | payer BC ==
[~2022-06-07] MED LIST changes: +CATHETER FLUSH 10 ML SYR IV PRN; +HOLD METFORMIN - RECEIVED CONTRAST 20 ML VIAL IV SCH; +IOHEXOL 350 MG/ML 100 ML (OMNIPAQUE 350) VIAL IV ONE; +NS 100 ML (IVPB) BAG IV ONE; +PRAM0.5T2 PO; +ROSU10TA28 PO
--- NOTE | 2022-06-07 14:23 | Diagnostic Imaging Report ---
EXAMINATION: CT abdomen and pelvis with intravenous contrast. TECHNIQUE: Multiple contiguous axial images were obtained through the abdomen and pelvis after the uneventful administration of intravenous contrast. All CT scans use one or more of the following dose optimizing techniques: automated exposure control, MA and/or KvP adjustment based on patient size and exam type or iterative reconstruction. HISTORY: NAUSEA, WEIGHT LOSS, FAM HX OF PANCREATIC CA COMPARISON: None available. FINDINGS: Lung bases: The lung bases are clear. Solid organs: The liver is normal without focal lesion. The gallbladder is surgically absent. There is no biliary ductal dilation. Pancreas is normal. Spleen is normal. Adrenal glands are normal. The kidneys are normal without hydronephrosis. Bowel: The stomach and small bowel are normal without obstruction. A moderate amount of stool is present within the colon. No findings of acute appendicitis. Peritoneum: There is no intraperitoneal free fluid or free air. No suspicious lymphadenopathy. Vasculature: Normal without aneurysm. Musculoskeletal: No suspicious osseous lesion or compression fracture. Pelvis: The uterus is surgically absent. No adnexal mass. The urinary bladder is normal. IMPRESSION: 1. No acute abnormality in the abdomen or pelvis. Dictated by: Dictated on workstation # [id number]
== END ==
LOC: RAD 13:33
PROVIDERS: ATTEND Nurse Practitioner Family
DX: R11.0 Nausea (principal); R63.4 Abnormal weight loss; Z80.42 Family history of malignant neoplasm of prostate
CPT/HCPCS: 74177

== ENCOUNTER → 2022-06-28 | Outpatient (CLI) | payer BC ==
[~2022-06-28] MED LIST changes: -CATHETER FLUSH 10 ML SYR IV PRN; -HOLD METFORMIN - RECEIVED CONTRAST 20 ML VIAL IV SCH; -IOHEXOL 350 MG/ML 100 ML (OMNIPAQUE 350) VIAL IV ONE; -NS 100 ML (IVPB) BAG IV ONE
--- NOTE | 2022-06-28 09:28 | Diagnostic Imaging Report ---
PROCEDURE: US Abdomen, limited. TECHNIQUE: Multiple realtime grayscale images were obtained over the abdomen in various projections. INDICATION: Left lower quadrant lump. Sonographic interrogation of an area of lump in left lower quadrant in the inguinal region was performed. There does appear to be a peristalsing mass during Valsalva at this location measuring 6.7 x 1.5 x 7.1 cm, perhaps representing a herniated bowel loop. No other abnormality is detected. No fluid collection is seen. IMPRESSION: Findings suspicious for a hernia containing a bowel loop in the left lower quadrant at the area of palpable abnormality. Dictated by: Dictated on workstation # [id number]
== END ==
LOC: RAD 06:54
PROVIDERS: ATTEND Nurse Practitioner Family
DX: R10.32 Left lower quadrant pain (principal); R19.04 Left lower quadrant abdominal swelling, mass and lump
CPT/HCPCS: 76705